=== PATIENT | male | born 1965 ===

== ENCOUNTER 2018-07-05 01:42 | Outpatient (CLI) | payer SELFPAY ==
[2018-07-05 08:50] LABS: CHOL/HDL RATIO 3.63 (0.00-4.99)
== END 2018-07-05 23:59 | disposition home or self-care (01) ==
LOC: HW HEART 01:42
DX: Z13.6 Encounter for screening for cardiovascular disorders (principal); R00.1 Bradycardia, unspecified
CPT/HCPCS: 36415